=== PATIENT | female | born 1950 | race Caucasian/White ===

== ENCOUNTER → 2017-05-22 | Outpatient (CLI) | payer OTHER | LOC: BHFA 13:00 | PROVIDERS: ATTEND Internal Medicine Cardiovascular Disease | DX: I48.91 Unspecified atrial fibrillation (principal); R00.2 Palpitations ==

== ENCOUNTER → 2017-06-14 | Outpatient (CLI) | payer OTHER | LOC: BHCLAF 11:30 | PROVIDERS: ATTEND Internal Medicine Cardiovascular Disease | DX: I47.1 Supraventricular tachycardia (principal); R06.02 Shortness of breath | CPT/HCPCS: 93306-PO ==

== ENCOUNTER 2017-06-20 10:54 | Observation (INO) | payer OTHER ==
[2017-06-20] MEDS ORDERED: NS 1,000 ML IV ONE (11:01)
--- NOTE | 2017-06-20 11:22 | CPEKG ---
Heart Rate: 83 RR Interval: 723 P-R Interval: 156 QRSD Interval: 86 QT Interval: 344 QTC Interval: 405 P [place]: 81 QRS [place]: 79 T Wave [place]: 34 EKG Severity - BORDERLINE ECG - EKG Impression: SINUS RHYTHM EKG Impression: PROBABLE LEFT ATRIAL ABNORMALITY Electronically Signed By: Reinier Hamilton 21-Jun-2017 12:23:08
--- NOTE | 2017-06-20 11:36 | PDHPUP ---
History & Physical Update H&P update statement: This history and physical update is based on an assessment of the patient which was completed after admission or registration (within 24 hours), but prior to the surgery/procedure. H&P update: H&P reviewed & patient examined, no change in patient's condition since H&P completed
[2017-06-20 11:39] LABS: PLATELET COUNT 398 10^3/uL (150-400)
[2017-06-20 11:50] LABS: INR 1.04 (0.83-1.16); PROTIME(PATIENT) 13.8 SEC (12.0-15.0)
[2017-06-20] MEDS ORDERED: LIDOCAINE 1% 300 MG/30 ML SDV ONE (11:55)
[2017-06-20] MEDS ORDERED: HEPARIN 10,000 UNIT/10 ML MDV (1,000 UNIT/ML) ONE (11:56)
[2017-06-20] MEDS ORDERED: BUPIVACAINE 0.5% 10 ML SDV ONE (11:56)
[2017-06-20] MEDS ORDERED: MIDAZOLAM 2 MG/2 ML VIAL IVP ONE (12:20)
--- NOTE | 2017-06-20 12:21 | PDANEPAE ---
ANE History of Present Illness afib ANE Past Medical History - Cardiovascular History Hx Arrhythmias: Yes - Pulmonary History Hx COPD: Yes Hx Sleep Apnea: No ANE Review of Systems Review of Systems: ANE Patient History - Allergies Allergies/Adverse Reactions: No Known Allergies Allergy (Unverified 06/14/17 12:19) - Home Medications Home Medications: Albuterol [Proventil Inhaler HFA (*)] 1 - 2 puffs IH DAILY PRN 06/14/17 [Last Taken Unknown] Alendronate Sodium [Fosamax 70 MG (*)] 70 mg PO SA@0700 06/14/17 [Last Taken 06/30 07:00] Aspirin [Aspirin 81mg (*)] 81 mg PO BID 06/14/17 [Last Taken 06/19/17 17:00] Budesonide/Formoterol 160/4.5 [Symbicort 160-4.5 Mcg Inh (*)] 2 puffs IH BID 06/02 [Last Taken 06/20/17 04:40] Cholecalciferol Vit D3 [Vitamin D3 (*)] 1,000 units PO BID 06/14/17 [Last Taken 06/19/17 17:00] Herbals/Supplements -Info Only 1 ea PO DAILY 06/14/17 [Last Taken 06/19/17 17:00 ] Levothyroxine [Synthroid 25 mcg (*)] 25 mcg PO DAILY06 06/14/17 [Last Taken 11/30 04:40] Omeprazole 20 mg PO DAILY 06/14/17 [Last Taken 06/20/17 04:30] Tiotropium Inhaler [Spiriva Inhaler] 2 inh IH DAILY 06/14/17 [Last Taken 04:40] - Smoking Hx Smoking Status: Former smoker ANE Labs/Vital Signs - Labs Result Diagrams: 06/20/17 11:20 06/20/17 11:20 - Vital Signs Height: 157 cm Weight: 59.9 kg ANE Physical Exam - Airway Neck exam: FROM Mallampati Score: Class 2 Mouth exam: dentures - Pulmonary Pulmonary: no respiratory distress - Cardiovascular Cardiovascular: regular rate and rhythym - ASA Status ASA Status: III ANE Anesthesia Plan Anesthesia Plan: general endotracheal anesthesia
[2017-06-20] MEDS ORDERED: ROCURONIUM 50 MG/5 ML VIAL ONE ×2 (12:41→15:58)
[2017-06-20] MEDS ORDERED: ONDANSETRON 4 MG/2 ML VIAL ONE ×2 (12:41→17:26)
[2017-06-20] MEDS ORDERED: fentaNYL 100 MCG/2 ML INJ ONE ×2 (12:41)
[2017-06-20] MEDS ORDERED: PROPOFOL 200 MG/20 ML VIAL ONE (12:41)
[2017-06-20] MEDS ORDERED: DEXAMETHASONE 4 MG/ML VIAL ONE (12:41)
[2017-06-20] MEDS ORDERED: ISOPROTERENOL HCL/D5W 0.2 MG/50 ML BAG IV ONE (13:06)
[2017-06-20] MEDS ORDERED: NALOXONE HCL 0.4 MG/ML INJ IVP PRN (15:32)
[2017-06-20] MEDS ORDERED: HYDROmorphONE/DILAUDID 1 MG/ML INJ IVP PRN (15:32)
[2017-06-20] MEDS ORDERED: ONDANSETRON 4 MG/2 ML VIAL IVP PRN (15:32)
[2017-06-20] MEDS ORDERED: DEXAMETHASONE 4 MG/ML VIAL IVP PRN (15:32)
[2017-06-20] MEDS ORDERED: fentaNYL 100 MCG/2 ML INJ IVP PRN (15:32)
[2017-06-20] MEDS ORDERED: PROMETHAZINE HCL 25 MG/ML INJ IVP PRN (15:32)
[2017-06-20] MEDS ORDERED: PHENYLEPHRINE HCL 100 MCG/ML SYR ONE (15:58)
[2017-06-20] MEDS ORDERED: OXYCODONE/APAP 5/325 TAB PO PRN (16:21)
[2017-06-20] MEDS ORDERED: ACETAMINOPHEN 325 MG TAB PO PRN (16:21)
[2017-06-20] MEDS ORDERED: SUGAMMADEX SODIUM 200 MG/2 ML VIAL IVP ONE (16:21)
[2017-06-20] MEDS ORDERED: ALBUTEROL 60 PUFFS/8 GM MDI IH PRN (16:23)
--- NOTE | 2017-06-20 16:40 | POSTANESTH ---
Post Anesthetic Evaluation Cardiovascular Status: Normal, Stable Respiratory Status: Normal, Stable Level of Consciousness/Mental Status: Can Participate in Eval Pain Control: Adequate, Prn Tx Ordered Nausea/Vomiting Control: Adequate, Prn Tx Ordered Complications Possibly Related to Anesthesia: None Noted
--- NOTE | 2017-06-20 16:43 | CPEKG ---
Heart Rate: 87 RR Interval: 690 P-R Interval: 172 QRSD Interval: 88 QT Interval: 376 QTC Interval: 453 P [place]: 77 QRS [place]: 78 T Wave [place]: 24 EKG Severity - NORMAL ECG - EKG Impression: SINUS RHYTHM EKG Impression: LEFT ATRIAL ENLARGEMENT Electronically Signed By: Reinier Hamilton 21-Jun-2017 12:23:01
[2017-06-20] MEDS ORDERED: PROMETHAZINE HCL 25 MG/ML INJ ONE (17:58)
[2017-06-20] MEDS: ASPIRIN 325 MG TAB PO SCH (20:49)
[2017-06-20] MEDS: CHOLECALCIFEROL VIT D3 1,000 UNITS TAB PO SCH (20:49)
[2017-06-20] MEDS: BUDESONIDE/FORMOTEROL 160/4.5 60 PUFFS/MDI IH SCH (21:19)
[2017-06-21 04:05] LABS: PLATELET COUNT 323 10^3/uL (150-400)
[2017-06-21 04:14] LABS: INR 1.11 (0.83-1.16); PROTIME(PATIENT) 14.5 SEC (12.0-15.0)
[2017-06-21 04:29] LABS: CREATINE KINASE 89 IU/L (0-156)
[2017-06-21] MEDS ORDERED: LEVOTHYROXINE 25 MCG TAB PO SCH (06:00)
[2017-06-21] MEDS: BUDESONIDE/FORMOTEROL 160/4.5 60 PUFFS/MDI IH SCH (06:32)
[2017-06-21 08:23] VITALS: BP 94/61; PULSE 87; RESP 12; TEMP 98; O2SAT 100
--- NOTE | 2017-06-21 08:38 | EPPROC ---
Electrophysiology Procedure Note: PROCEDURES PERFORMED: 02675-01 EP evaluation with RA/RV/LA pace/record, with arrhythmia induction 65925-95 EP evaluation with RA/RV pace record, insert/reposition catheter, with arrhythmia induction 76694 Intracardiac catheter ablation, SVT arrhythmogenic focus 97221 3D mapping Fluoroscopy INDICATION: This is a 67 yr old female with palpitation on and off every day. The pt did not want to try medications and opted for EP study and ablation and hence she was brought in for EP study with possible ablation PROCEDURE: Catheters & Anesthesia: The patient arrived in the Electrophysiology Laboratory in the fasting state. The right clavicular region, right groin, and left groin area were prepped and draped in the usual sterile manner. Anesthesiologist administered general anesthesia. Appropriate non-invasive blood pressure, pulse oximetry and end- tidal CO2 monitoring was established. All catheters were placed percutaneously using the modified Seldinger technique , and advanced into position under fluoroscopic guidance. One CRD2 catheter was advanced to the His-bundle position via the right femoral vein. . One #7 [place] deflectable catheter with 10 pairs of electrodes was placed via the right femoral vein into the coronary sinus. Programmed stimulation was performed from the right atrium, right ventricle and coronary sinus (left atrium). Parahisian pacing demonstrated constant H-A interval with changing V-A intervals and stimulus-A intervals during capture and loss of capture of proximal RBB proving retrograde conduction over AV node. AVNRT was induced easily during CS pacing. Ventricular extrastimuli delivered during tachycardia without altering antegrade His bundle activation did not advance next atrial potential, indicating that the tachycardia was not utilizing an accessory pathway for retrograde conduction. VA interval was 10 ms. Post entrainment of the tachycardia from the ventricle, there was VAHV response. Mapping of the right atrium and coronary sinus during AVNRT identified earliest atrial activation above the tendon of Peggy at a level slightly posterior to the level of the His bundle, consistent with retrograde conduction over the fast AV leonard pathway. A #8 [place] deflectable quadrapolar electrode catheter (2mm-5mm-2mm spacing) with 4 mm tip electrode and sensor for the 3D mapping Carto system was advanced to the right atrium. 3 D mapping of the inter-atrial septum and coronary sinus was performed and location of the AV node was marked. RF applications were delivered to the region between the tricuspid annulus and the coronary sinus ostium, at the level of the upper edge of the coronary sinus ostium. Radiofrequency applications were also delivered along the roof of the proximal coronary sinus. Junctional rhythm occurred during all of the RF applications. AFter what appeared to be successful ablation, 20min later, SVT would be reinduced and further ablation were performed. This cycle repeated a few times. Eventually, SL3 sheath was used and ablation was performed closer to the His bundle. On one occasion, VA block was noted for one beat during junctional rhythm. Further lesions were given further away. Programmed stimulation was continued post ablation at baseline and during graded doses of isoproterenol. Sustained AVNRT was not inducible. There were 2 echo beats. The catheters were removed. The patient was transferred to the cardiovascular holding area in stable condition. Vascular access sheaths were removed in the holding area. There were no apparent complications. 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 ( Slow/fast AVNRT). Successful modification of the slow AV leonard pathway by ablation in the triangle of Casas, farther from and close to the His bundle No complications.
[2017-06-21] MEDS ORDERED: Herbals/Supplements -Info Only PO SCH (09:00)
[2017-06-21] MEDS ORDERED: TIOTROPIUM INHALER 18 MCG/DOSE 5 DOSE/MDI IH SCH (09:00)
[2017-06-21] MEDS ORDERED: TIOTROPIUM BROMIDE IH SCH (09:00)
[2017-06-21] MEDS ORDERED: OMEPRAZOLE 20MG CAPS PO SCH (09:00)
[2017-06-21] MEDS ORDERED: PANTOPRAZOLE SODIUM 40 MG TAB PO SCH (09:00)
--- NOTE | 2017-06-21 09:19 | CPEKG ---
Heart Rate: 77 RR Interval: 779 P-R Interval: 164 QRSD Interval: 88 QT Interval: 364 QTC Interval: 412 P [place]: 76 QRS [place]: 69 T Wave [place]: 35 EKG Severity - BORDERLINE ECG - EKG Impression: SINUS RHYTHM EKG Impression: PROBABLE LEFT ATRIAL ABNORMALITY Electronically Signed By: Reinier Hamitlon 21-Jun-2017 12:22:26
[2017-06-21] MEDS: ASPIRIN 325 MG TAB PO SCH (09:29)
[2017-06-21] MEDS: CHOLECALCIFEROL VIT D3 1,000 UNITS TAB PO SCH (09:29)
--- NOTE | 2017-06-21 10:14 | ECHO ---
[email or web address] [address] [address] Main: [phone] Fax: Transthoracic Echocardiogram Name: NADJA GAITAN MR#: [id number] Study Date: 06/21/2017 Study Time: 08:54 AM Date of : 1950 Age: 67 year(s) Height: 154.9 cm (61 in.) Weight: 59.87 kg (132 lb.) BSA: 1.58 m2 Gender: Female Examination: Echo Indication: Image Quality: Contrast: Requested by: Zan Robbins BP: 94 mmHg/61 mmHg Heart Rate: Rhythm: Indication: Procedure Staff Engineer System Administrator: Migel Pozo RDCS Reading Physician: Reinier Villafuerte MD Requesting Provider: Conclusions: Normal size left ventricle. No LV hypertrophy. Normal global systolic LV function. EF is 68 %. No regional wall motion abnormality. Diastolic dysfunction is present. . Normal size right ventricle. The left atrium is normal in size. The right atrium is normal in size. Trivial to mild mitral regurgitation. The aortic valve is tri-leaflet. Trivial tricuspid valve regurgitation. The aorta is normal. Measurements: Chambers Valvular Assessment AV/MV Valvular Assessment TV/PV Normal Normal Normal Name Value Range Name Value Range Name Value Range Ao Mallory (MM): 2.7 cm (2.2 cm-3.7 AV Vmax: 1.79 m/s (1 m/s-1.7 TR Vmax: 3.14 mm/s ( - ) cm) m/s) TR PGmax: 39 mmHg ( - ) IVSd (2D): 0.7 cm (0.6 cm-1.1 AV maxP mmHg ( - ) syst. PAP: 44 mmHg ( - ) cm) LVOT Vmax: 0.97 m/s (0.7 m/s-1.1 PV Vmax: 0.90 m/s (0.6 m/s-0.9 LVDd (2D): 4.7 cm (3.9 cm-5.3 m/s) m/s) cm) MV E Vmax: 1.15 m/s ( - ) PV PGmax: 3 mmHg ( - ) LVDs (2D): 2.9 cm (2.1 cm-4 MV A Vmax: 1.43 m/s ( - ) cm) MV E/A: 0.80 ( - ) LVPWd (2D): 0.8 cm ( - ) LVEF (2D): 68 (>=54 %) Continued Measurements: Patient: NADJA GAITAN Study Date: 06/21/2017 Page 1 of 2 08:54 AM Chambers Valvular Assessment AV/MV Valvular Assessment TV/PV Name Value Name Value Name Value LADs Lon.6 cm MV E/E' Septal: 16.60 CVP (est.): 5 mmHg LA Area: 11.7 cm2 MV E/E' Lateral: 11.60 LA Volume: 30 ml LA Volume Index: 19.0 ml/m2 Findings: Left Ventricle: Normal size left ventricle. No LV hypertrophy. Normal global systolic LV function. EF is 68 %. No regional wall motion abnormality. Diastolic dysfunction is present. . Right Ventricle: Normal size right ventricle. Left Atrium: The left atrium is normal in size. Right Atrium: The right atrium is normal in size. Mitral Valve: The mitral valve is normal in appearance and function. Trivial to mild mitral regurgitation. Aortic Valve: The aortic valve is normal in appearance and function. The aortic valve is tri-leaflet. Tricuspid Valve: The tricuspid valve is normal in appearance and function. Trivial tricuspid valve regurgitation. Pulmonic Valve: Pulmonary valve not well visualized. Aorta: The aorta is normal. Pericardium: No pericardial effusion. (No Signature Object) Patient: NADJA GAITAN Study Date: 06/21/2017 Page 2 of 2 08:54 AM [id number]
--- NOTE | 2017-06-21 10:42 | GDS ---
[f rep st] DISCHARGE SUMMARY ADMIT DIAGNOSES: 1. Palpitations. 2. Supraventricular tachycardia. 3. Planned electrophysiology study with possible ablation. DISCHARGE DIAGNOSES: 1. 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 2. Supraventricular tachycardia. COURSE OF HOSPITALIZATION: This nice lady was evaluated in clinic by Dr. Zan Robbins with complaints of palpitations. She does not tolerate medications well, and requested no trial medication, but rather to proceed to EP study with possible ablation. Dr. Robbins did review risks and benefits with her at length. She did prefer to proceed with the electrophysiology study and possible ablation therapy. She was taken to the EP lab by Dr. Robbins, where he was able to successfully map out and perform ablation with no complications. She then was recovered overnight in the PCU, where she has done well. Her monitor today shows regular sinus rhythm with a rate of 88 beats per minute. No breakthrough arrhythmias are noted. Echocardiogram has been done showing no abnormalities. Groin site is intact. She has been up ambulating in her room. At this time, she currently is stable for discharge. MEDICATIONS: She will go home on: Aspirin 325 mg enteric-coated 1 tablet daily , albuterol inhaler 1-2 puffs daily as needed, omeprazole 20 mg daily, herbal supplements 1 daily, vitamin D3 1,000 units twice daily, Fosamax 70 mg on Saturdays, Synthroid 25 mcg daily, Symbicort 160/4.5 mcg inhalation twice daily , Spiriva Respimat 2 puffs inhaled daily, Tylenol 325 mg 1-2 tablets every 4 hours as needed for pain, not to exceed 3,000 mg daily. PHYSICAL EXAMINATION: VITAL SIGNS: On day of discharge, blood pressure 94/61, heart rate 87 and regular, oxygen saturation 100%. HEART: Rate is regular. No murmurs, rubs, gallops. LUNGS: Sounds are clear to auscultation. No wheezes, rales, or rhonchi. EXTREMITIES: Peripheral pulses are 2+ bilaterally. Right groin site is intact with no bleeding, induration, or pain. LABORATORY DATA: Telemetry shows a normal sinus rhythm. Morning EKG showed normal sinus rhythm with no arrhythmias. Electrophysiology procedure 06/20/2017. Indication paroxysmal palpitations on and off every day. She was taken to the EP lab by Dr. Robbins, where he was able to isolate and successfully perform ablation. Mapping of the right atrium and coronary sinus during AVNRT identified earliest atrial activation above the tendon of Peggy at a level slightly posterior to the level of the His bundle, consistent with retrograde conduction over the fast AV leonard pathway. Ablation was successful. There were no apparent complications. DISCHARGE PLAN: She will follow up with Dr. Robbins in 1 month. She is to take aspirin enteric-coated 325 mg daily for 1 month. Groin site instructions have been reviewed with her, and written instructions provided. She will call the office should she have any concerns. At this time, she currently is stable for discharge. /[id number]/MODL MTDD
[2017-06-22] MEDS ORDERED: ALENDRONATE SODIUM 70 MG TAB PO SCH (07:00)
== END 2017-06-21 11:45 | disposition home or self-care (01) ==
LOC: FCATH 10:54 → F2W 15:12
PROVIDERS: ADMIT Internal Medicine Cardiovascular Disease; ATTEND Internal Medicine Cardiovascular Disease
PROC: 5A1213Z Performance of Cardiac Pacing, Intermittent (ICD-10-PCS; principal; 2017-06-20)
PROC: 4A023FZ Measurement of Cardiac Rhythm, Percutaneous Approach (ICD-10-PCS; principal; 2017-06-20)
PROC: 02583ZZ Destruction of Conduction Mechanism, Percutaneous Approach (ICD-10-PCS; principal; 2017-06-20)
PROC: 02K83ZZ Map Conduction Mechanism, Percutaneous Approach (ICD-10-PCS; principal; 2017-06-20)
DX: I47.1 Supraventricular tachycardia (principal); R00.2 Palpitations; J44.9 Chronic obstructive pulmonary disease, unspecified; K21.9 Gastro-esophageal reflux disease without esophagitis; Z87.891 Personal history of nicotine dependence
CPT/HCPCS: 93005; 93306; 93613; 93621; 93623; 93653; C1730; C1732; C1893; J0171; J1100; J1644; J2250; J2370; J2405; J2550; J2704; J3010

== ENCOUNTER 2017-08-12 14:07 | Day surgery (SDC) | payer OTHER ==
[2017-08-12] MEDS ORDERED: LR 1,000 ML IV ONE (14:37)
[2017-08-12] MEDS ORDERED: LIDOCAINE 1% 2 ML INJ ID PRN (14:37)
--- NOTE | 2017-08-12 15:43 | PDANEPAE ---
ANE History of Present Illness EGD, colonoscopy ANE Past Medical History - Cardiovascular History Hx Hypertension: No Hx Arrhythmias: Yes Hx Chest Pain: No Hx Coronary Artery / Peripheral Vascular Disease: No Hx CHF / Valvular Disease: No Hx Palpitations: No Cardiovascular History Comment: afib. svt. AVNRT. ablation with Rosendo following up on 07/26/17 - Pulmonary History Hx COPD: Yes Hx Asthma/Reactive Airway Disease: Yes Hx Recent Upper Respiratory Infection: No Hx Oxygen in Use at Home: Yes O2 in Use at Home (L/minute): 3l around house and 4l at noc Hx Sleep Apnea: No Sleep Apnea Screening Result - Last Documented: Negative - Neurologic History Hx Cerebrovascular Accident: No Hx Seizures: No Hx Dementia: No - Endocrine History Hx Diabetes: No Endocrine History Comment: hypothyroidism - Renal History Hx Renal Disorders: No - Liver History Hx Hepatic Disorders: No - Neurological & Psychiatric Hx Hx Neurological and Psychiatric Disorders: No - Cancer History Hx Cancer: No - Congenital Disorder History Hx Congenital Disorders: No - GI History Hx Gastrointestinal Disorders: Yes Gastrointestinal History Comment: GERD. was told at [facility] she aspirates was started on prilosec. hx of colonoscopies - Other Health History Other Health History: wears glasses. upper partial - Chronic Pain History Chronic Pain: No - Surgical History Prior Surgeries: cardiac ablation 06/20/17 with Rosendo. 10/1982 tubal ligation. 1955 t&a. colonoscopies ANE Review of Systems Review of systems is: negative Review of Systems: - Exercise capacity METS (RN): 3 METS ANE Patient History - Allergies Allergies/Adverse Reactions: No Known Allergies Allergy (Verified 07/19/17 16:00) - Home Medications Home medications: home medication list seen and reviewed Home Medications: Albuterol [Proventil Inhaler HFA (*)] PRN 06/14/17 [Last Taken 1 Day Ago ~] Alendronate Sodium [Fosamax 70 MG (*)] SA@0700 06/14/17 [Last Taken 08/10/17] Budesonide/Formoterol 160/4.5 [Symbicort 160-4.5 Mcg Inh (*)] 06/14/17 [Last Taken 08/12/17] Herbals/Supplements -Info Only 06/14/17 [Last Taken 1 Day Ago ~08/11/17] Levothyroxine [Synthroid 25 mcg (*)] 06/14/17 [Last Taken 08/12/17] Omeprazole 06/14/17 [Last Taken 1 Day Ago ~08/11/17] Tiotropium [place] [Spiriva Respimat] 06/20/17 [Last Taken 08/12/17] Aspirin [Aspirin 325 mg (*)] 07/19/17 [Last Taken Unknown] Iron BID 07/19/17 [Last Taken 4 Days Ago ~08/08/17] Aspirin 81 mg PO 08/12/17 [Last Taken 1 Day Ago ~08/11/17] - NPO status NPO Since - Liquids (Date): 08/12/17 NPO Since - Liquids (Time): 06:30 NPO Since - Solids (Date): 08/11/17 NPO Since - Solids (Time): 06:45 - Anes Hx Anes Hx: post operative nausea - Smoking Hx Smoking Status: Former smoker - Family Anes Hx Family Hx Anesthesia Complications: mother gets very nauseated afterwards ANE Labs/Vital Signs - Vital Signs Blood Pressure: 149/95 Heart Rate: 94 Respiratory Rate: 18 O2 Sat (%): 91 Height: 157 cm Weight: 59.9 kg ANE Physical Exam - Airway Neck exam: FROM Mallampati Score: Class 1 Mouth exam: dentures - Pulmonary Pulmonary: no respiratory distress - Cardiovascular Cardiovascular: regular rate and rhythym - ASA Status ASA Status: III ANE Anesthesia Plan Total IV Anesthesia: Yes
[2017-08-12] MEDS ORDERED: PROPOFOL/EMULSION 500 MG/50 ML BOTTLE IV ONE (16:15)
[2017-08-12] MEDS ORDERED: LIDOCAINE 2% 100 MG/5 ML SYR ONE (16:15)
--- NOTE | 2017-08-12 16:18 | PDGENHP ---
History & Physical Chief Complaint: anemia History of Present Illness: History of colonic AVMs Pertinent Past, Social, Family History: N/A Relevant Physical Exam: skin warm. cor RRR. pul CTAP. abd NT. m.s. stable Cardiorespiratory Assessment: as per anesthesiologist
--- NOTE | 2017-08-12 17:08 | GIREPORT ---
[facility] Surgical Services - Endoscopy Department Patient Name: Vi Wilburn Procedure Date: 08/12/2017 4:15 PM Patient Type: Outpatient Attending MD/ ER Physician: Matteo Aaron MD Procedure: Upper GI endoscopy Indications: Anemia. Recent epigastric/LUQ "burning" abdominal pain, now resolved. E lse, please see my 07/03/17 office note. Providers: Matteo Aaron MD Referring MD: Rosette Jensen MD; Zan Robbins MD Medicines: Sedation Administered by an Anesthesia Professional Complications: No immediate complications. Description of Procedure: After obtaining informed consent, the endoscope was passed under direct vision. Throughout the procedure, the patient's blood pressure, pulse, and oxygen saturations were monitored continuously. The Endoscope was intro duced through the mouth, and advanced to the second part of duodenum. Findings: The esophagus was normal. The stomach was normal. The examined duodenum was normal. Biopsies were taken with a cold force ps for histology. Estimated Blood Loss: Estimated blood loss: none. Post Op Diagnosis: - No cause found for anemia. Recommendation: - Biopsies results pending, in case of a selective iron-deficiency spru e (doubt). We will call her with these results within 10 days. - Else, please see colonoscopy report. - Thank you for allowing me to help in the management of this patient. Attending Participation: I personally performed the entire procedure. Agnieszka Felipe MD Matteo Aaron MD 08/12/2017 5:08:20 PM This report has been signed electronicallyPeter MD Agnieszka Number of Addenda: 0 Note Initiated On: 08/12/2017 4:15 PM [email or web address]
--- NOTE | 2017-08-12 17:15 | GIREPORT ---
[facility] Surgical Services - Endoscopy Department Patient Name: Vi Wilburn Procedure Date: 08/12/2017 4:28 PM Patient Type: Outpatient Attending MD/ ER Physician: Matteo Aaron MD Procedure: Colonoscopy Indications: Anemia, with a negative EGD. Else, please see EGD report. Providers: Matteo Aaron MD Referring MD: Zan Hi MD Medicines: Sedation Administered by an Anesthesia Professional Complications: No immediate complications. Description of Procedure: After obtaining informed consent, the scope was passed under direct vis ion. Throughout the procedure, the patient's blood pressure, pulse, and oxyg en saturations were monitored continuously. The Colonoscope was introduced through the anus and advanced to the terminal ileum. The terminal ileum was photographed. The quality of the bowel preparation was good. Findings: The terminal ileum appeared normal. Multiple medium-sized angioectasias were found in the ascending colon a nd cecum, about ten in number. Coagulation for tissue destruction using ar jh plasma was successful (settings for right colon). A few diverticula were found in the sigmoid colon. Internal hemorrhoids were found. The hemorrhoids were very small. Estimated Blood Loss: Estimated blood loss: none. Post Op Diagnosis: - Multiple colonic angioectasias, as above. Ablated with argon plasma coagulation (APC). Suspect this will help greatly. Recommendation: - Recommend continuing iron halfway. - If possible, recommend stopping baby aspirin. - Pt. wishes a repeat CBC, ferritin. I will have my nurse contact her, to arrange this. - Repeat colonoscopy PRN for retreatment. - Else, return to primary care physician PRN. Recommend periodic H/Hs, to make sure they remain stable, as I suspect. - Thank you for allowing me to help in the management of this patient. Attending Participation: I personally performed the entire procedure. Agnieszka Felipe MD Matteo Aaron MD 08/12/2017 5:15:17 PM This report has been signed electronicallyPeter MD Agnieszka Number of Addenda: 0 Note Initiated On: 08/12/2017 4:28 PM Total Procedure Duration Time 0 hours 31 minutes 55 seconds [email or web address]
[2017-08-12 18:04] VITALS: BP 163/95
== END 2017-08-12 18:20 | disposition home or self-care (01) ==
LOC: FSGY 14:07
PROVIDERS: ATTEND Internal Medicine Gastroenterology
PROC: 0D5E8ZZ Destruction of Large Intestine, Via Natural or Artificial Opening Endoscopic (ICD-10-PCS; principal; 2017-08-12 16:00)
PROC: 0DB98ZX Excision of Duodenum, Via Natural or Artificial Opening Endoscopic, Diagnostic (ICD-10-PCS; principal; 2017-08-12 16:00)
DX: K55.21 Angiodysplasia of colon with hemorrhage (principal); R10.12 Left upper quadrant pain; D64.9 Anemia, unspecified
CPT/HCPCS: J2001; J2704